=== PATIENT | male | born 1980 | race Caucasian/White ===

== ENCOUNTER → 2021-02-27 | Day surgery (SDC) | payer BC ==
[~2021-02-27] MED LIST: Bupivacaine 0.5%/EPINEPHrine 1:200,000 50 ML MDV ONE; Dexamethasone 4 MG/ML 5 ML MDV ONE; FLU Vacc QS2021-22 36MOS UP/PF 60 MCG/0.5 ML Syringe IM ONE; Lactated Ringers 1,000 ML IV SCH; Lidocaine 1%/Sod Bicarbonate in NS 8.4% 1 ML Syringe IDERM PRN; Midazolam 1 MG/ML 2 ML SDV ONE; Ondansetron 4 MG/2 ML SDV ONE; Propofol 200 MG/20 ML SDV ONE; Sodium Chloride 0.9% 10 ML Syringe FLUSH PRN; ceFAZolin 1 GM Vial ONE; fentaNYL 100 MCG/2 ML SDV ONE
--- NOTE | 2021-02-27 08:06 | PCM.PREANE ---
Preanesthetic Assessment - Procedure Proposed Procedure: Open inguinal hernia repair - Anesthesia/Transfusion/Family Hx Anesthesia History: Prior Anesthesia Without Reaction Family History of Anesthesia Reaction: No Transfusion History: No Prior Transfusion(s) - Review of Systems General: No Symptoms Pulmonary: No Symptoms, Other (former smoker, quit 5 yrs ago) Cardiovascular: No Symptoms Gastrointestinal: No Symptoms, Other (GERD, takes prilosec daily) Neurological: No Symptoms Other: Reports: None - Physical Assessment NPO Status Date: 02/26/21 NPO Status Time: 21:00 Height: 1.7 m Weight: 88.9 kg ASA Class: 2 Mental Status: Alert & Oriented x3 Airway Class: Mallampati = 2 Dentition: Reports: Normal Dentition Thyro-Mental Finger Breadths: 3 Mouth Opening Finger Breadths: 3 ROM/Head Extension: Full Lungs: Clear to Auscultation, Normal Respiratory Effort Cardiovascular: Regular Rate, Regular Rhythm - Allergies Allergies/Adverse Reactions: Allergies Allergy/AdvReac Type Severity Reaction Status Date / Time No Known Allergies Allergy Verified 02/26/21 16:05 - Blood Blood Available: No Product(s) Available: None - Anesthesia Plan Pre-Op Medication Ordered: None - Acknowledgements Anesthesia Type Planned: MAC Pt an Appropriate Candidate for the Planned Anesthesia: Yes Alternatives and Risks of Anesthesia Discussed w Pt/Guardian: Yes Pt/Guardian Understands and Agrees with Anesthesia Plan: Yes PreAnesthesia Questionnaire HEENT History: Reports: Other (See Below) Other HEENT History: jaw surgery Gastrointestinal History: Reports: Other (See Below) Other Gastrointestinal History: inguinal hernia - Infectious Disease History Infectious Disease History: Reports: None - Past Surgical History HEENT Surgical History: Reports: Myringotomy w Tube(s) - SUBSTANCE USE Tobacco Use Status *Q: Current Every Day Tobacco User Recreational Drug Use History: No - HOME MEDS Home Medications: Home Meds Omeprazole Magnesium [Prilosec Otc] 20 mg PO DAILY 02/26/21 [History] - CURRENT (IN HOUSE) MEDS Current Meds: Current Medications Lactated Ringer's (Ringers, Lactated) 1,000 mls @ 125 mls/hr IV ASDIRECTED ANJEL Stop: 02/27/21 23:00 Influenza Virus Vaccine (Flu Vacc [id number] 36mos Up/Pf 60 Mcg/0.5 Ml Syringe) 60 mcg IM .ONCE ONE Stop: 02/27/21 10:31 Lidocaine/Sodium Bicarbonate (Lidocaine 1%/Sod Bicarbonate In Ns 8.4% 1 Ml Syringe) 0.25 ml IDERM ONETIME PRN PRN Reason: Prior to IV Start Stop: 02/27/21 18:00 Sodium Chloride (Sodium Chloride 0.9% 10 Ml Syringe) 10 ml FLUSH ASDIRECTED PRN PRN Reason: Keep Vein Open Stop: 02/27/21 18:00 Discontinued Medications Dexamethasone (Dexamethasone 4 Mg/Ml 5 Ml Mdv) Confirm Administered Dose 20 mg .ROUTE .STK-MED ONE Stop: 02/27/21 07:19 Fentanyl (Fentanyl 100 Mcg/2 Ml Sdv) Confirm Administered Dose 100 mcg .ROUTE .STK-MED ONE Stop: 02/27/21 07:13 Influenza Virus Vaccine (Pharmacy To Dose - Influenza Vaccine) 1 each IM ONETIME ONE Stop: 02/26/21 16:06 Lidocaine HCl (Lidocaine 1% 5 Ml Sdv) Confirm Administered Dose 5 ml .ROUTE .STK-MED ONE Stop: 02/27/21 07:19 Midazolam HCl (Midazolam 1 Mg/Ml 2 Ml Sdv) Confirm Administered Dose 2 mg .ROUTE .STK-MED ONE Stop: 02/27/21 07:14 Ondansetron HCl (Ondansetron 4 Mg/2 Ml Sdv) Confirm Administered Dose 4 mg .ROUTE .STK-MED ONE Stop: 02/27/21 07:19 Propofol (Propofol 200 Mg/20 Ml Sdv) Confirm Administered Dose 600 mg .ROUTE .STK-MED ONE Stop: 02/27/21 07:13
--- NOTE | 2021-02-27 10:08 | PCM.PRNOTE ---
- Free Text/Narrative Note: Date: 02/27/2021 Operation: open left inguinal hernia repair Surgeon: Octavio Mclaughlin MD Antibiotic: 2 g ancef IV pre-incision DVT ppx: SCD EBL: 5 cc Specimen: none Prosthetic: Progrip polyester mesh Findings: direct left inguinal hernia. Hernia sac was opened, suture ligated and amputated. 9 x 15 cm Progrip mesh cut to size for repair. Detailed Report: The patient was taken to the operating room and placed on the table in supine position. Timeout was performed and monitored anesthesia care was initiated. Abdominal hair was clipped and the abdomen was prepped and draped in usual sterile fashion. 20 cc of 0.5% Marcaine with epinephrine was injected intradermally and in the subcutaneous tissue along the projected line of the inguinal ligament. A 7 cm incision was made over this projection starting at the level of the left pubic tubercle and extending laterally and superiorly. Dissection was carried down through subcutaneous tissue until the external oblique aponeurosis was identified. The external ring was palpated and there was an evident hernia. An additional 10 cc of local anesthetic was injected just deep to the roof of the inguinal canal. A small stab incision was made with a 15 blade scalpel, and Metzenbaum scissors were passed deep to the incision proximally and distally to separate cord contents from the overlying roof. The external oblique fibers were opened distally to the external ring and proximally. Blunt dissection was used to get around the spermatic cord at the level of the pubic tubercle, and 1/4 inch [place] drain was passed around the structure. The hernia sac was easily from the cord, as there was an indirect hernia with palpable defect about the size of the surgeon's index finger which was reducible. There was an associated lipoma with the hernia sac which was removed. The sac was dissected from its distal end all the way to its neck. Scissors were used to open the sac at its distalmost aspect to confirm its identity. The sac was then clamped, suture ligated and amputated at its neck. Next, a 9 x 15 piece of ProGrip polyester mesh was introduced into the field and cut to size. An anchoring 2-0 Prolene stitch was placed at the inferomedial aspect of the mesh and anchored at the level of Elmer's ligament with good inferior and medial overlap. Next, the inferolateral edge of the mesh was sutured to the shelving edge of the inguinal canal with running 2-0 Prolene suture. A slit in the mesh that had been cut to permit passage of the spermatic cord was secured in proper position around the cord with a single Prolene stitch. The mesh was tucked down flat deep to the external oblique aponeurosis, and a single anchoring stitch was placed medially to secure the mesh to the internal oblique muscle. With the mesh lying flat, the roof of the inguinal canal was closed with running 3-0 Vicryl suture, recreating the external ring. Aristides's fascia was closed with several interrupted Vicryl sutures and skin was closed with running subcuticular Vicryl suture. An additional 10 cc of local anesthetic was injected for regional block at the level of the ASIS. Dermabond was applied. The patient tolerated the procedure well.
--- NOTE | 2021-02-27 10:09 | PCM.POSTAN ---
POST ANESTHESIA ASSESSMENT - MENTAL STATUS Mental Status: Somnolent - VITAL SIGNS Vital Signs: Last Vital Signs Temp 36.6 C 02/27/21 07:30 Pulse 81 02/27/21 07:30 Resp 16 02/27/21 07:30 BP 138/94 H 02/27/21 07:30 Pulse Ox 99 02/27/21 07:30 - RESPIRATORY Respiratory Status: Respiratory Rate WNL, Airway Patent, O2 Saturation Stable - CARDIOVASCULAR CV Status: Pulse Rate WNL, Blood Pressure Stable - GASTROINTESTINAL GI Status: No Symptoms - PAIN Pain Score: 0 - POST OP HYDRATION Hydration Status: Adequate & Stable
--- NOTE | 2021-02-27 10:10 | PCM48HPAN ---
Post Anesthesia Note - EVALUATION WITHIN 48HRS OF ANESTHETIC Vital Signs in Normal Range: Yes Patient Participated in Evaluation: Yes Respiratory Function Stable: Yes Airway Patent: Yes Cardiovascular Function Stable: Yes Hydration Status Stable: Yes Pain Control Satisfactory: Yes Nausea and Vomiting Control Satisfactory: Yes Mental Status Recovered: Yes Vital Signs: Last Vital Signs Temp 36.6 C 02/27/21 07:30 Pulse 81 02/27/21 07:30 Resp 16 02/27/21 07:30 BP 138/94 H 02/27/21 07:30 Pulse Ox 99 02/27/21 07:30
== END | disposition home or self-care (01) ==
LOC: JD.SDS 07:27
PROVIDERS: ATTEND Surgery
DX: K40.90 Unilateral inguinal hernia, without obstruction or gangrene, not specified as recurrent (principal); D17.6 Benign lipomatous neoplasm of spermatic cord; K21.9 Gastro-esophageal reflux disease without esophagitis; Z87.891 Personal history of nicotine dependence
CPT/HCPCS: 49505; 90471; 90686; J0690; J1100; J2250; J2405; J2704; J3010; J3490; J7120; 00830; C1781; G0008